=== PATIENT | male | born 1985 | race Caucasian/White ===

== ENCOUNTER 2016-05-22 22:24 | Emergency (ER) | payer OTHER, MEDICARE | END 2016-05-23 01:26 | disposition home or self-care (01) | LOC: ER 22:24 | DX: S20.212A Contusion of left front wall of thorax, initial encounter (principal); S40.012A Contusion of left shoulder, initial encounter; Z88.1 Allergy status to other antibiotic agents; V89.2XXA Person injured in unspecified motor-vehicle accident, traffic, initial encounter ==

== ENCOUNTER 2016-06-27 23:31 | Emergency (ER) | payer MEDICARE | END 2016-06-28 02:02 | disposition home or self-care (01) | LOC: ER 23:31 | DX: S20.211A Contusion of right front wall of thorax, initial encounter (principal); S50.811A Abrasion of right forearm, initial encounter; F17.210 Nicotine dependence, cigarettes, uncomplicated; Z88.5 Allergy status to narcotic agent; W14.XXXA Fall from tree, initial encounter; Y92.009 Unspecified place in unspecified non-institutional (private) residence as the place of occurrence of the external cause ==

== ENCOUNTER 2016-07-11 01:51 | Emergency (ER) | payer MEDICARE | END 2016-07-11 03:25 | disposition home or self-care (01) | LOC: ER 01:51 | DX: L50.0 Allergic urticaria (principal); F17.210 Nicotine dependence, cigarettes, uncomplicated; Z88.5 Allergy status to narcotic agent | CPT/HCPCS: J1200 ==

== ENCOUNTER 2016-07-26 06:57 | Emergency (ER) | payer MEDICARE | END 2016-07-26 07:49 | disposition home or self-care (01) | LOC: ER 06:57 | DX: N20.0 Calculus of kidney (principal); F17.210 Nicotine dependence, cigarettes, uncomplicated; Z88.5 Allergy status to narcotic agent | CPT/HCPCS: 96372; J1885 ==